=== PATIENT | female | born 1990 | race Two or more races ===

== ENCOUNTER 2022-11-23 20:29 | Inpatient (IN) ==
[2022-11-23] MEDS ORDERED: LIDOCAINE 1% LOCAL 20 ML VIAL INFIL PRN (21:22)
[2022-11-23] MEDS ORDERED: OXYTOCIN 30 UNITS/500 ML BAG IV PRN (21:22)
[2022-11-23] MEDS ORDERED: PHARMACY GLYCEMIC MGMT CONSULT PRN (21:32)
[2022-11-23] MEDS ORDERED: miSOPROStoL 50 MCG TAB PO ONE (21:34)
[2022-11-23] MEDS ORDERED: NovoLIN-N (NPH) PER UNIT CHARGE SQ ONE (21:45)
[2022-11-23 22:03] LABS: Hematocrit (blood only) 37.1 % (37.0-47.0); Hemoglobin 12.4 g/dl (12.0-16.0); Mean Corpuscular Hemoglobin 28.2 pg (25.0-34.0); Mean Corpuscular Hgb Conc 33.4 g/dL (32.0-36.0); Mean Corpuscular Volume 84.3 fL (80.0-100.0); Mean Platelet Volume 11.2 fL (9.4-12.4); Platelet Count 175 K/uL (130-400); RDW Coefficient of Variation 14.6 % (11.5-14.5); RDW Standard Deviation 45.1 fL (36.4-46.3); White Blood Count 7.85 K/ul (4.8-10.8)
[2022-11-23 22:43] LABS: Rubella IgG Ab Immune (Immune)
[2022-11-24] MEDS ORDERED: BUTORPHANOL TARTRATE 1 MG/ML VIAL IV PRN (02:06)
[2022-11-24] MEDS ORDERED: miSOPROStoL 50 MCG TAB PO ONE (02:06)
[2022-11-24] MEDS: LACTATED RINGER'S 1,000 ML IV PRN ×2 (04:00→05:03)
[2022-11-24] MEDS ORDERED: BUPIVACAINE 0.25% PF 30 ML VIAL ONE (04:09)
[2022-11-24] MEDS ORDERED: fentaNYL citrate PF 100 MCG/2 ML VIAL ONE ×2 (04:09→11:07)
[2022-11-24] MEDS ORDERED: LIDOCAINE 2%/EPINEPHRINE 1:200,000 20 ML PF ONE ×2 (04:09→11:13)
[2022-11-24] MEDS ORDERED: SODIUM CHLORIDE 0.9% PF INJ 10 ML VIAL ONE (04:09)
[2022-11-24] MEDS ORDERED: fentaNYL 2MCG/ML ROPIVACAINE 1.25MG/ML 100 ML BAG EPI ONE (04:10)
[2022-11-24] MEDS ORDERED: SODIUM CHLORIDE 0.9% PF INJ 10 ML VIAL EPI STA (04:31)
[2022-11-24] MEDS ORDERED: LIDOCAINE 2%/EPINEPHRINE 1:200,000 20 ML PF EPI STA (04:31)
[2022-11-24] MEDS ORDERED: ROPIVACAINE 0.5% PF 5 MG/ML 20 ML VIAL EPI PRN (04:31)
[2022-11-24] MEDS ORDERED: fentaNYL citrate PF 100 MCG/2 ML VIAL EPI PRN (04:31)
[2022-11-24] MEDS ORDERED: BUPIVACAINE 0.25% PF 30 ML VIAL EPI STA (04:31)
[2022-11-24] MEDS ORDERED: ePHEDrine sulfate 50 MG/ML AMP IV PRN ×2 (04:31→12:39)
[2022-11-24] MEDS ORDERED: fentaNYL citrate PF 100 MCG/2 ML VIAL EPI STA (04:31)
[2022-11-24] MEDS ORDERED: LIDOCAINE 2% MPF LOCAL 5 ML VIAL EPI PRN (04:31)
[2022-11-24] MEDS ORDERED: NALOXONE HCL 1 MG in SODIUM CHLORIDE 0.9% 1000ML 1,000 ML IV PRN ×2 (04:31→12:39)
[2022-11-24] MEDS ORDERED: ONDANSETRON INJ 2 MG/ML 2 ML VIAL IV PRN ×3 (04:31→13:00)
[2022-11-24] MEDS ORDERED: NALBUPHINE HCL INJ 10 MG/ML AMP IV PRN ×2 (04:31→12:39)
[2022-11-24] MEDS ORDERED: BUPIVACAINE 0.25% PF 30 ML VIAL EPI PRN (04:31)
[2022-11-24] MEDS ORDERED: SODIUM CHLORIDE 0.9% PF INJ 10 ML VIAL EPI PRN (04:31)
[2022-11-24] MEDS ORDERED: diphenhydrAMINE 50 MG/ML VIAL IV PRN ×3 (04:31→13:00)
[2022-11-24] MEDS ORDERED: fentaNYL 2MCG/ML ROPIVACAINE 1.25MG/ML 100 ML BAG EPI PRN (04:31)
[2022-11-24] MEDS ORDERED: NALOXONE HCL 0.4 MG/1 ML VIAL/CARP IV PRN ×2 (04:31→12:39)
--- NOTE | 2022-11-24 04:31 | Anesthesiology Consultation ---
Date of Service November 24, 2022 Assessment & Plan ASA ASA3 Proposed Anesthesia Anesthesia Type: Labor Epidural Risk / Benefits Reviewed With: PT / POA / Parent / Guardian, Accepts Plan and Informed Consent Obtained History Height/Weight Height: 4 ft 10 in Weight: 73.482 kg Allergies Allergy/AdvReac Type Severity Reaction Status Date / Time No Known Allergies Allergy Verified 10/10/22 11:10 Medications Home Medications Medication Instructions Recorded Confirmed Last Taken insulin syringe-needle U-100 1 mL #200 ea 09/12/22 10/10/22 Unknown 31 gauge x 5/16" (BD Insulin Syringe Ultra-Fine) blood sugar diagnostic (Accu-Chek #400 ea 10/10/22 10/10/22 Unknown Guide test strips) insulin NPH isoph U-100 human 100 See Rx Instructions subcut .COMPLEX 10/10/22 11/23/22 11/23/22 13:00 unit/mL subcutaneous suspension (Novolin N NPH U-100 Insulin isophane) prenat.vits,mirian,few-fepl-ymuto 1 tab PO DAILY 10/10/22 11/23/22 11/22/22 08:00 Active Medications Generic Name Dose Route Start Last Admin Trade Name Freq PRN Reason Stop Dose Admin Lactated Ringer's 1,000 mls @ 125 mls/hr 11/23/22 21:22 11/24/22 04:00 Lr IV 11/25/22 21:21 999 mls/hr .Q8H PRN Administration L&D Protocol Protocol Past Medical History Medical History PCOS (polycystic ovarian syndrome) Exercise / Class Metabolic Activity II 4-5 Yardwork/Stairs/Walk up hill Past Surgical History Surgical History No history of previous surgery Past Anesthesia History No Hx of Anesthesia Complications and No Family Hx of Anesthesia Complications History of PONV No Hx of PONV and No Hx of Motion Sickness Social History Smoking Status: Never smoker Hx Alcohol Use: No Hx Substance Use: No Review of Systems denies fever/cough/ colds/ chest pain/ SOB/ ROLANDO denies ROLANDO Physical Exam Vital Signs Last Vital Signs Temp 36.9 C 11/24/22 04:00 Pulse 76 11/24/22 03:51 Resp 18 11/24/22 04:00 BP 125/80 11/24/22 03:51 ENMT Mouth: no TMJ abnormality and no dentition abnormality Thyromental Distance: > or= 3.5 Finger Breadths Mallampati Class: II Neck neck extension not limited Respiratory normal respiratory effort; no respiratory distress Auscultation: lungs clear to auscultation bilaterally Cardiovascular Rate/Rhythm: regular rate and regular rhythm Neurologic moves all extremities Psychiatric Orientation: alert and oriented x 3 Testing Laboratory Results 11/23/22 21:42 11/23/22 21:42 Blood Type O Positive 11/23/22 21:42 11/24/22 11/24/22 04:17 01:26 POC Glucose 94 82
[2022-11-24] MEDS ORDERED: OXYTOCIN 30 UNITS/500 ML BAG IV PRN (06:17)
[2022-11-24] MEDS ORDERED: METOCLOPRAMIDE HCL INJ 5 MG/ML 2 ML VIAL ONE (11:07)
[2022-11-24] MEDS ORDERED: ONDANSETRON INJ 2 MG/ML 2 ML VIAL ONE (11:07)
[2022-11-24] MEDS ORDERED: MoRPHine SULFATE PF 1 MG/ML 10 ML AMP/VIAL ONE (11:07)
[2022-11-24] MEDS ORDERED: OXYTOCIN 10 UNITS/ML 10ML VIAL ONE ×2 (11:07→12:22)
[2022-11-24] MEDS ORDERED: CITRIC ACID/SODIUM CITRATE 15 ML UDC ONE (11:26)
[2022-11-24] MEDS ORDERED: ceFAZolin 330 MG/ML 1 GM VIAL ONE (11:36)
--- NOTE | 2022-11-24 11:38 | History and Physical Report ---
DATE OF SERVICE: 11/24/2022. CHIEF COMPLAINT: Insulin-dependent diabetes, cephalopelvic disproportion, intrauterine at 39+ weeks' gestation. HISTORY OF PRESENT ILLNESS: The patient is a 32-year-old 1, para 0. Her general health is c omplicated by the development of diabetes during this . She was actually diagnosed at her f irst visit. She became an insulin-dependent diabetic. She has been well controlled. She h as had to take insulin twice a day. Her first ultrasound and last menstrual period line up with a du e date of 11/29/2022. She has had two ultrasounds to check for abdominal girth and head circumferenc e. Her last ultrasound was done about 5 days prior to admission and it showed an abdominal circumfer ence and head circumference, which were compatible. Therefore, we gave her a shot at vaginal deliver y. Her cervix was fairly right when she came in, it was about 100% effaced, it was 2 cm dilated. Sh e was given one dose of p.o. Cytotec, then augmented with Pitocin, given epidural for pain control. Membranes were ruptured and slight meconium. She went to full dilatation and the head would not desc end into the mid pelvis. She was diagnosed with a cephalopelvic disproportion and a history of insul in-dependent diabetes. PAST MEDICAL HISTORY: She has no known drug allergies. She is diagnosed with diabetes during this p regnancy. No previous surgery. SOCIAL HISTORY: No smoking, no excessive alcohol intake. Works at home. FAMILY HISTORY: Mom 76, in good health. Father at age 59, kidney failure. Two brothers and on e sister. One brother is diabetic. One sister had a term stillborn. REVIEW OF SYSTEM: HEAD: No symptoms of frequent or severe headaches. EYES: No symptoms of blurred vision or double vision. EARS: No symptoms of frequent ear infection or difficulty hearing. NOSE: No symptoms of frequent nosebleeds or difficulty breathing through her nose. THROAT: No symptoms of frequent or severe sore throats or difficulty swallowing. RESPIRATORY SYSTEM: No history of asthma, chest pain, or shortness of breath. PHYSICAL EXAMINATION: GENERAL: Well-developed, well-nourished 32-year-old female, alert, oriented x3 and cooperative, in n o acute distress, appeared her stated age. EYES: Conjunctivae are pink. Sclerae white, no evidence of jaundice. ENT: Ears had normal light reflex bilaterally. HEART: Had regular rhythm. S1 and S2 are normal. LUNGS: Clear to auscultation and percussion. ABDOMEN: Revealed a term size fetus estimated weight 7-8 pounds, no CVA tenderness, no calf tenderne ss. PELVIC: Revealed cervix to be fully dilated. Large amount of molding, head to be at about a -1 stat ion. IMPRESSION OF THIS CASE: Insulin-dependent diabetes, cephalopelvic disproportion. Job ID: [id number]
[2022-11-24] MEDS ORDERED: CITRIC ACID/SODIUM CITRATE 15 ML UDC PO SCH (12:00)
[2022-11-24] MEDS ORDERED: PHENYLEPHRINE 100MCG/ML 5ML SYR ONE (12:20)
[2022-11-24] MEDS ORDERED: OXYTOCIN 10 UNITS/ML 10ML VIAL IM ONE (12:27)
[2022-11-24] MEDS ORDERED: MoRPHine SULFATE PF 1 MG/ML 10 ML AMP/VIAL INT SPINAL ONE (12:39)
[2022-11-24] MEDS ORDERED: NALOXONE HCL 0.08 MG in SYRINGE 1.8 ML IV PRN (12:39)
[2022-11-24] MEDS ORDERED: KETOROLAC 30 MG/ML VIAL IV PRN (12:39)
[2022-11-24] MEDS ORDERED: MoRPHine SULFATE 2 MG/ML CARP IV PRN (12:39)
[2022-11-24] MEDS ORDERED: LACTATED RINGER'S 500 ML IV PRN (12:39)
[2022-11-24] MEDS ORDERED: METOCLOPRAMIDE HCL 20 MG in SODIUM CHLORIDE 0.9% 50 ML IV PRN (12:39)
[2022-11-24] MEDS ORDERED: SODIUM CHLORIDE 0.9% 1000ML 1,000 ML IV SCH (12:45)
[2022-11-24] MEDS ORDERED: NO NARCOTICS OR SEDATIVES SCH (12:45)
[2022-11-24] MEDS ORDERED: DC INTRASPINAL MORPHINE SCH (12:45)
[2022-11-24] MEDS ORDERED: DIPHTHERIA/TETANUS/PERTUSSIS Vaccine (Tdap, Age 7+yrs) 0.5mL SYR/VL IM ONE (13:00)
[2022-11-24] MEDS ORDERED: MAGNESIUM HYDROXIDE SUSP 30 ML UDC PO PRN (13:00)
[2022-11-24] MEDS ORDERED: MEPERIDINE HCL 50 MG/ML CARP IV PRN (13:00)
[2022-11-24] MEDS ORDERED: HYDROCORTISONE ACETATE 25 MG SUPP PR PRN (13:00)
[2022-11-24] MEDS ORDERED: LACTATED RINGER'S 1,000 ML IV SCH (13:00)
[2022-11-24] MEDS ORDERED: BENZOCAINE 20% AER SPR 82.5 GM CAN EXT PRN (13:00)
[2022-11-24] MEDS ORDERED: SENNA 8.6 MG TAB PO PRN (13:00)
--- NOTE | 2022-11-24 13:10 | Pharmacy Report ---
Pharmacy Glycemic Sign Off Nt - Date of Service November 24, 2022 - Assessment & Plan ASSESSMENT: * Pharmacy was consulted by Dr Leos on 11/23/22 for glycemic control and to write orders per [facility] inpatient glycemic control protocol. * Major changes made by pharmacy to antidiabetic regimen include: * monitoring of blood sugar prior to delivery * Patient has been receiving/requiring 0 units of insulin per day for adequate glycemic control AND patient delivered. Patient was a gestational diabetic * Do not anticipate further changes in patient status that would quickly deteriorate glycemic control (i.e. patient to be NPO for upcoming procedure, steroids tapering, starting tube feedings, etc). * Please see recommendations for outpatient antidiabetic regimen below. PLAN FOR INPATIENT GLYCEMIC CONTROL: No changes needed to current regimen. * Pharmacy is signing off of glycemic consult and will no longer be making adjustments to inpatient regimen. Please feel free to re-consult if needed. Thank you.
--- NOTE | 2022-11-24 13:16 | Anesthesiology Progress Note ---
Date of Service November 24, 2022 Anesthesia Post Procedure Vital Signs Vital Signs: Temp Pulse Resp BP Pulse Ox 11/24/22 13:13 91 H 98 11/24/22 13:09 95 H 106/57 L 11/24/22 13:08 98 H 98 11/24/22 11:36 72 133/71 11/24/22 11:21 75 146/83 H 11/24/22 11:06 68 154/79 H 11/24/22 11:04 67 99 11/24/22 10:59 74 98 11/24/22 10:54 76 98 11/24/22 10:53 71 187/92 H 11/24/22 10:49 79 99 11/24/22 10:44 72 97 11/24/22 10:39 70 97 11/24/22 10:36 74 133/62 11/24/22 10:34 74 97 11/24/22 10:29 68 97 11/24/22 10:24 66 97 11/24/22 10:20 76 128/66 11/24/22 10:19 76 98 11/24/22 10:14 74 96 11/24/22 10:09 70 96 11/24/22 10:07 98.1 F 70 20 132/63 11/24/22 10:04 70 97 11/24/22 09:59 65 97 11/24/22 09:54 66 97 11/24/22 09:51 71 156/86 H 11/24/22 09:49 70 96 11/24/22 09:44 76 97 11/24/22 09:39 74 97 11/24/22 09:35 75 141/89 H 11/24/22 09:34 85 97 11/24/22 09:29 75 95 11/24/22 09:24 74 96 11/24/22 09:19 69 97 11/24/22 09:14 85 95 11/24/22 09:09 79 95 11/24/22 09:08 80 94 11/24/22 09:07 72 132/68 11/24/22 09:04 81 95 11/24/22 08:59 69 96 11/24/22 08:54 77 96 11/24/22 08:50 78 142/86 H 11/24/22 08:49 75 96 11/24/22 08:44 94 H 95 11/24/22 08:43 87 94 11/24/22 08:39 74 95 11/24/22 08:38 79 94 11/24/22 08:34 68 95 11/24/22 08:35 66 119/63 05 08:30 86 94 11/24/22 08:29 81 95 11/24/22 08:24 70 95 11/24/22 08:22 78 94 11/24/22 08:20 71 128/66 11/24/22 08:19 68 95 11/24/22 08:14 73 96 11/24/22 08:09 68 96 11/24/22 08:06 75 126/66 11/24/22 08:04 76 95 11/24/22 07:59 72 96 11/24/22 07:54 73 96 11/24/22 07:50 79 139/78 11/24/22 07:49 68 97 11/24/22 07:44 80 96 11/24/22 07:39 77 96 11/24/22 07:35 83 133/72 05 07:34 79 94 11/24/22 07:29 96 11/24/22 07:29 79 05 07:29 81 94 11/24/22 07:24 88 96 11/24/22 07:19 89 97 11/24/22 07:20 98.2 F 100 H 20 121/69 11/24/22 07:14 76 96 11/24/22 07:09 72 96 11/24/22 07:06 93 H 122/71 11/24/22 07:04 99 H 96 11/24/22 07:00 82 94 11/24/22 06:59 78 95 11/24/22 06:54 95 11/24/22 06:54 78 05 06:54 86 94 11/24/22 06:51 73 131/63 05 06:49 110 H 96 11/24/22 06:44 106 H 97 11/24/22 06:39 77 95 11/24/22 06:36 76 125/69 11/24/22 06:34 73 96 11/24/22 06:30 18 11/24/22 06:30 18 11/24/22 06:29 72 96 11/24/22 06:24 98 H 96 11/24/22 06:20 106 H 117/68 11/24/22 06:19 78 96 11/24/22 06:14 81 95 11/24/22 06:09 104 H 94 11/24/22 06:05 93 H 96/51 L 94 11/24/22 06:04 77 94 11/24/22 06:00 98.4 F 98 H 18 94 11/24/22 05:59 91 H 94 11/24/22 05:05 20 11/24/22 05:05 20 11/24/22 05:10 20 11/24/22 05:10 20 11/24/22 05:15 18 11/24/22 05:15 18 11/24/22 05:55 84 94 11/24/22 05:54 79 94 11/24/22 05:49 94 11/24/22 05:49 80 11/24/22 05:49 82 93 11/24/22 05:48 89 98/56 L 11/24/22 05:44 94 11/24/22 05:44 84 11/24/22 05:44 74 99/58 L 94 11/24/22 05:39 100 H 95 11/24/22 05:38 94 11/24/22 05:38 93 H 11/24/22 05:38 69 96/55 L 11/24/22 05:34 103 H 95 11/24/22 05:32 93 H 94 11/24/22 05:33 93 H 97/53 L 11/24/22 05:29 84 94 11/24/22 05:28 82 104/51 L 11/24/22 05:24 95 H 95 11/24/22 05:23 82 99/53 L 11/24/22 05:19 89 95 11/24/22 05:18 88 94/50 L 94 11/24/22 05:14 95 11/24/22 05:14 85 11/24/22 05:13 77 94 11/24/22 05:14 81 99/50 L 11/24/22 05:09 81 95 11/24/22 05:06 132/58 L 11/24/22 05:04 89 128/69 96 11/24/22 05:02 83 141/69 H 11/24/22 05:00 82 18 139/72 11/24/22 04:59 80 96 11/24/22 04:58 94 H 140/76 11/24/22 04:56 85 139/83 11/24/22 04:54 71 137/75 98 11/24/22 04:52 78 157/83 H 11/24/22 04:49 67 98 11/24/22 04:44 89 98 11/24/22 04:39 89 98 11/24/22 04:00 18 11/24/22 04:00 98.4 F 18 11/24/22 03:51 76 125/80 11/23/22 22:59 18 11/23/22 22:59 98.1 F 18 11/23/22 22:58 63 129/77 11/23/22 20:57 67 135/78 11/23/22 20:35 66 144/82 H 11/23/22 20:36 98.6 F 20 Transfer of Care Handoff Completed per policy Notes Mental Status: alert / awake / arousable and participated in evaluation Patient Amnestic to Procedure: No Nausea / Vomiting: adequately controlled Pain: adequately controlled Airway Patency, RR, SpO2: stable & adequate BP & HR: stable & adequate Hydration State: stable & adequate Neuraxial Anesthesia: was administered and sensory block is resolving Anesthetic Complications: no major complications apparent and Pt Satisfied with anesthetic care
--- NOTE | 2022-11-24 13:16 | Anesthesia Procedure Note ---
Date of Service November 24, 2022 Anesthesia Post Epidural Note Vital Signs Vital Signs: Temp Pulse Resp BP Pulse Ox 98.1 F 91 H 20 106/57 L 98 11/24/22 10:07 11/24/22 13:13 11/24/22 10:07 11/24/22 13:09 11/24/22 13:13 Notes Mental Status: alert / awake / arousable and participated in evaluation Nausea / Vomiting: adequately controlled Pain: adequately controlled Airway Patency, RR, SpO2: stable & adequate BP & HR: stable & adequate Hydration State: stable & adequate Neuraxial Anesthesia: was administered and sensory block is resolving Anesthetic Complications: no major complications apparent and Pt Satisfied with anesthetic care Epidural: Removed without complications and With tip intact
[2022-11-24] MEDS ORDERED: DEXTROSE 50% 50 ML SYRINGE IV PRN (13:30)
[2022-11-24] MEDS ORDERED: CARBOHYDRATES FOR HYPOGLYCEMIA PO PRN (13:30)
[2022-11-24] MEDS ORDERED: GLUCOSE 10 TAB/TUBE PO PRN (13:30)
[2022-11-24] MEDS ORDERED: GLUCOSE 40% GEL 15 GM TUBE PO PRN (13:30)
[2022-11-24] MEDS ORDERED: GLUCAGON FOR INJ 1 MG VIAL IM PRN (13:30)
[2022-11-24] MEDS: OXYTOCIN 20 UNITS in LACTATED RINGER'S 1,000 ML IV SCH ×2 (14:25→22:27)
--- NOTE | 2022-11-24 14:39 | Pharmacy Report ---
Pharmacy Glycemic Short Note 2 - Date of Service November 24, 2022 - Glycemic Short BSG Results (Last 24 hours): 11/23/22 11/24/22 11/24/22 21:42 01:26 04:17 Glucose 95 POC Glucose 82 94 11/24/22 11/24/22 11/24/22 06:07 08:07 10:03 Glucose POC Glucose 105 H 99 83 OUTPATIENT ANTIDIABETIC REGIMEN: * NPH 50 units with breakfast, 30 units with lunch, and 20 units with dinner ASSESSMENT: * Ms Mcgregor is a 32 y/o F with a PMH of gestational diabetes who presents for induction and subsequent . * During induction, patient required no insulin with highest BSG of 105 mg/dL. * Patient is now POD 0 for . She will be NPO then given clear liquids. * Per physician request, will keep blood sugar checks . No carbohydrate coverage. PLAN FOR INPATIENT GLYCEMIC CONTROL: * Basal insulin * no basal * Bolus insulin * NovoLog per scale ACHS or Q6hrs while NPO * Goal Range: Low 110 mg/dL - High 140 mg/dL * Correction Factor: 35 mg/dL/unit * Nutritional / Prandial insulin per carb ratio of 1 unit per - grams CHO consumed
[2022-11-24] MEDS: SIMETHICONE 80 MG CHEW PO SCH ×3 (17:23→20:40)
[2022-11-24] MEDS ORDERED: Nursing to Pharmacy Communication SCH (18:00)
[2022-11-24] MEDS ORDERED: INSULIN ASPART PER UNIT CHARGE SC SCH (18:00)
[2022-11-24] MEDS: ceFAZolin 2000MG 2,000 MG/15 ML SYR IV SCH (18:34)
[2022-11-24] MEDS ORDERED: OXYTOCIN 10 UNITS/ML VIAL ONE (18:55)
[2022-11-24] MEDS: DOCUSATE SODIUM 100 MG CAP PO SCH (20:40)
[2022-11-24] MEDS: INSULIN ASPART PER UNIT CHARGE SC SCH (20:46)
[2022-11-25] MEDS: ceFAZolin 2000MG 2,000 MG/15 ML SYR IV SCH (05:12)
[2022-11-25] MEDS ORDERED: MEPERIDINE HCL 50 MG/ML CARP IV PRN (06:40)
[2022-11-25] MEDS ORDERED: diphenhydrAMINE Capsule 25 MG CAP PO PRN (06:40)
[2022-11-25] MEDS ORDERED: PROMETHAZINE HCL 25 MG in SODIUM CHLORIDE 0.9% 50 ML IV PRN (06:40)
[2022-11-25] MEDS ORDERED: KETOROLAC 30 MG/ML VIAL IV PRN (06:40)
[2022-11-25] MEDS ORDERED: ZOLPIDEM TARTRATE 5 MG TAB PO PRN (06:40)
[2022-11-25 06:54] LABS: Basophils # (auto) 0.02 K/uL (0-0.2); Basophils % (auto) 0.2 %; Eosinophils # (auto) 0.01 K/uL (0-0.50); Eosinophils % (auto) 0.1 %; Hematocrit (blood only) 27.2 % (37.0-47.0); Hemoglobin 9.2 g/dl (12.0-16.0); Immature Granulocytes # (auto) 0.04 K/uL (0.01-0.20); Immature Granulocytes % (auto) 0.3 %; Lymphocytes # (auto) 1.21 K/uL (1.2-3.4); Lymphocytes % (auto) 10.6 %; Mean Corpuscular Hemoglobin 28.1 pg (25.0-34.0); Mean Corpuscular Hgb Conc 33.8 g/dL (32.0-36.0); Mean Corpuscular Volume 83.2 fL (80.0-100.0); Mean Platelet Volume 11.1 fL (9.4-12.4); Monocytes % (auto) 6.1 %; Neutrophils # (auto) 9.48 K/uL (1.40-6.50); Neutrophils % (auto) 82.7 %; Platelet Count 143 K/uL (130-400); RDW Coefficient of Variation 14.8 % (11.5-14.5); RDW Standard Deviation 44.5 fL (36.4-46.3); Red Blood Count 3.27 M/uL (4.20-5.40); White Blood Count 11.46 K/ul (4.8-10.8)
--- NOTE | 2022-11-25 08:09 | Operative Report (OR) ---
HISTORY: She was an insulin-dependent diabetic followed in my office for care. She was diagnosed with insulin-dependent diabetes on her very first visit, required two doses of insulin a day and had been well controlled. Her due date is 11/29/2022, was also consistent with her first ultrasound and her last menstrual period. She had 2 ultrasounds done to check the size of the abdomen in relationship to one done 5 days prior to admission and she was deemed a candidate for attempted vaginal delivery due to no obvious abdominal enlargement. PREOPERATIVE DIAGNOSES: Insulin diabetes, cephalopelvic disproportion. POSTOPERATIVE DIAGNOSIS: Delivered live female infant via direct occiput posterior position with a nuchal cord x1, light meconium fluid. SURGEON: Stephanie Leos MD. REAL ESTATE PROCESSOR: Jamil. ESTIMATED BLOOD LOSS: 600 mL. ANESTHESIA: Epidural. OPERATIVE FINDING AND PROCEDURE: The patient was brought to the OR table, correctly identified by armband and conversation. Bojorquez catheter was inserted into the bladder, connected to gravity drainage. Compression stockings were applied. Lower abdomen was painted with an alcohol based sterilizing solution, allowed to dry for 3 minutes and drape in the usual sterile fashion. Patient identification was then done and then the anesthesia level was tested and found to be adequate. Pfannenstiel incision was made and carried down to the anterior fascia by sharp dissection. Hemostasis was secured by electrocauterization. Fascia was incised transversely from the underlying muscle by blunt and sharp dissection. Recti muscles were in the midline exposing the peritoneum, which was carefully raised and entered. A bladder retractor was used to expose the lower uterine segment. An incision was made above the bladder and the peritoneum was incised laterally exposing the fascial layer of the uterus. This was scored with a knife and then entered bluntly with the scissors. Some light meconium fluid was noted. Warehouse Operator's hand was placed into the uterine cavity and the head was brought out, the head had not entered the mid pelvis, it was in a direct posterior position looking right at you. There was a nuchal cord x1, which had to be reduced over the head. After delivery of the head, body was delivered without difficulty. Cord was then allowed to clamp for a minute, pulsed for a minute, then clamped and cut and attended to by the molding machine tender, who was scrubbed and present at the time of delivery. Cord blood was taken. The placenta was removed manually. Uterus, tubes, and ovaries were brought out through the incision. The lower uterine segment was identified with ring forceps at each lateral angle and then one each in the middle. First layer was heavy duty chromic, which approximated the myometrial layer with a continuous interlocking suture from the right side to the middle and then from the left side to the middle. Hemostasis was achieved with this. A 10 units of pitocin was injected into the uterus. A second layer was approximated with a heavy duty Vicryl. This suture was placed in a horizontal fashion and this inverted the incision and approximated the fascia over the myometrial approximation. Following this, hemostasis was good. Another layer was used to approximate the peritoneum and restore the bladder flap. The pelvis was cleansed of all blood clots and debris. Uterus, tubes, and ovaries were reinserted into the abdomen. We identified the lower uterine segment and it was hemostatic. The stats on the angles of the suture were cut. A careful anatomical approximation of the anterior abdominal wall was now performed. The peritoneum was closed with continuous interlocking suture of chromic. Recti muscles were approximated with interrupted [id number] suture chromic. Fascia was closed with continuous interlocking suture of Vicryl on each side and tied in the midline. Subcutaneous was approximated with a running plain. The skin edges were approximated with staple clips. The patient tolerated the procedure well and left the OR in good condition. Job ID: [id number] [facility]
--- NOTE | 2022-11-25 08:48 | Obstetrical Progress Note ---
Date of Service November 25, 2022 Assessment & Plan Admission and Anticipated Discharge Date Admission Date: November 23, 2022 Subjective abdomen soft and no tender bowel sounds present hypo active bandage removed incision is clean and dry vaginal bleeding scant hgb 9.2 Results & Data Vital Signs (Past 12 Hours) Vital Signs Temp Pulse Pulse Resp BP Pulse Ox O2 Del Method 11/25/22 07:30 37.1 C 79 18 106/67 97 Room Air 11/25/22 05:55 17 98 11/25/22 04:55 15 98 11/25/22 03:55 17 97 11/25/22 04:10 36.7 C 84 17 119/70 95 Room Air 11/25/22 02:55 16 96 11/25/22 01:55 16 98 11/25/22 00:55 16 97 11/24/22 23:55 15 95 11/24/22 22:55 17 96 11/24/22 21:55 15 98 11/24/22 20:55 16 96 11/25/22 00:00 36.7 C 81 16 128/70 97 Room Air
[2022-11-25 11:32] LABS: HBSAG NON-REACTIVE (NON-REACTIVE)
[2022-11-25] MEDS: SIMETHICONE 80 MG CHEW PO SCH ×3 (13:58→21:31)
[2022-11-25] MEDS: IBUPROFEN 600 MG TAB PO PRN ×3 (13:58→21:30)
[2022-11-25] MEDS: oxyCODONE/ACETAMINOPHEN 5mg/325mg TAB PO PRN ×3 (13:59→21:30)
[2022-11-25] MEDS ORDERED: bisacodyL 5 MG TABEC PO SCH (20:00)
[2022-11-25] MEDS: DOCUSATE SODIUM 100 MG CAP PO SCH (21:31)
[2022-11-25] MEDS: INSULIN ASPART PER UNIT CHARGE SC SCH (21:53)
[2022-11-26] MEDS: oxyCODONE/ACETAMINOPHEN 5mg/325mg TAB PO PRN ×5 (01:21→21:47)
[2022-11-26] MEDS: IBUPROFEN 600 MG TAB PO PRN ×5 (01:21→21:46)
[2022-11-26 07:51] LABS: Hematocrit (blood only) 25.4 % (37.0-47.0); Hemoglobin 8.6 g/dl (12.0-16.0)
[2022-11-26] MEDS: PRENATAL VITAMIN 1 TAB PO SCH (09:03)
[2022-11-26] MEDS: FERROUS SULFATE 325 MG TAB PO SCH (09:03)
[2022-11-26] MEDS: DOCUSATE SODIUM 100 MG CAP PO SCH ×2 (09:03→21:47)
[2022-11-26] MEDS: SIMETHICONE 80 MG CHEW PO SCH ×4 (09:03→21:47)
--- NOTE | 2022-11-26 09:23 | Obstetrical Progress Note ---
Date of Service November 26, 2022 Assessment & Plan Admission and Anticipated Discharge Date Admission Date: November 23, 2022 Subjective abdomen soft and non tender incision is clean and dry no calf tenderness ambulating well vaginal bleeding scant hgb 8.6 Results & Data Vital Signs (Past 12 Hours) Vital Signs Temp Pulse Pulse Resp BP Pulse Ox O2 Del Method 11/26/22 08:39 36.7 C 66 18 126/77 97 Room Air 11/25/22 23:11 36.6 C 66 18 121/76 99 Room Air
[2022-11-26] MEDS ORDERED: bisacodyL 10 MG SUPP PR PRN (13:00)
[2022-11-27] MEDS: oxyCODONE/ACETAMINOPHEN 5mg/325mg TAB PO PRN ×2 (03:15→08:21)
[2022-11-27] MEDS: IBUPROFEN 600 MG TAB PO PRN ×2 (03:16→08:21)
[2022-11-27] MEDS: DOCUSATE SODIUM 100 MG CAP PO SCH (08:20)
[2022-11-27] MEDS: FERROUS SULFATE 325 MG TAB PO SCH (08:20)
[2022-11-27] MEDS: PRENATAL VITAMIN 1 TAB PO SCH (08:20)
[2022-11-27] MEDS: SIMETHICONE 80 MG CHEW PO SCH (08:20)
--- NOTE | 2022-11-27 08:28 | Obstetrical Progress Note ---
Date of Service November 27, 2022 Assessment & Plan Admission and Anticipated Discharge Date Admission Date: November 23, 2022 Subjective abdomen soft and non tender incision is clean and dry no calf tenderness ambulating well vaginal bleeding scant hgb 8.6 Results & Data Vital Signs (Past 12 Hours) Vital Signs Temp Pulse Resp BP Pulse Ox O2 Del Method 11/27/22 07:35 36.5 C 63 18 118/65 99 Room Air 11/27/22 00:09 36.9 C 87 20 132/79 98 Room Air
--- NOTE | 2022-11-27 09:24 | Discharge Summary (DS) ---
HOSPITAL COURSE: This patient was patient followed in our office. She had a severe gestati onal diabetes. Eventually, she ended up on split doses of insulin to control her blood sugars. Her blood sugars were well controlled during her . She was brought in for induction at 39 weeks and about 2 days. Induction was started with p.o. Cytotec and eventually went to IV Pitocin. She r eceived epidural for pain control. Membranes were ruptured surgically. There was meconium-stained f luid. With IV Pitocin, she became fully dilated with a good contraction pattern, but the head failed to come down into the pelvis. She was diagnosed with cephalopelvic disproportion. She underwent a low segment section. She received prophylactic antibiotics. At the time of section, the in annetta had a nuchal cord x1 and it was in a direct occiput posterior position. Postoperatively, agustin petersen did well. She remained afebrile. Her hemoglobin did drop to 8.6. At the time of discharge, she w as ambulating well, eating well. Postoperative instructions were given in [place]. She was given me dicines for pain control and she was instructed to return to the office in one week for removal of st aples. Job ID: [id number]
== END 2022-11-27 11:30 | disposition home or self-care (01) | DRG 788 ==
LOC: 4S1 20:29 → 4E2 11-24 16:46